=== PATIENT | female | born 1965 | race Caucasian/White ===

== ENCOUNTER → 2018-10-19 | Outpatient (REF) | payer BC | LOC: M LAB REF 10:09 | PROVIDERS: ATTEND Physician Assistant | DX: N39.0 Urinary tract infection, site not specified (principal) ==

== ENCOUNTER → 2019-12-22 | Outpatient (REF) | payer BC | LOC: M WUC 16:05 | PROVIDERS: ATTEND Physician Assistant | DX: R30.0 Dysuria (principal) ==

== ENCOUNTER → 2023-06-04 | Outpatient (REF) | payer BC | LOC: M LAB REF 20:09 | PROVIDERS: ATTEND Physician Assistant | DX: R30.0 Dysuria (principal); B96.20 Unspecified Escherichia coli [E. coli] as the cause of diseases classified elsewhere ==

== ENCOUNTER → 2023-12-03 | Outpatient (REF) | payer BC | LOC: M LAB REF 19:26 | PROVIDERS: ATTEND Physician Assistant | DX: N30.00 Acute cystitis without hematuria (principal) ==